=== PATIENT | male | born 1970 | race Two or more races ===

== ENCOUNTER 2020-08-03 10:14 | Outpatient (CLI) | payer OTHER | END 2020-08-03 23:59 | disposition home or self-care (01) | LOC: LAB 10:14 | PROVIDERS: ATTEND Specialist | DX: Z01.812 Encounter for preprocedural laboratory examination (principal); Z20.828 Contact with and (suspected) exposure to other viral communicable diseases | CPT/HCPCS: 87426; C9803; U0003 ==

== ENCOUNTER 2020-08-10 08:41 | Day surgery (SDC) | payer OTHER ==
[2020-08-10] VITALS (7 sets, daily range): BP systolic 114–163; BP diastolic 72–80
[2020-08-10] MEDS ORDERED: LIDOCAINE 1% INJ 50 ML MDV IJ ONE (10:25)
[2020-08-10] MEDS ORDERED: EPINEPHRINE (1:1000) 1 MG/ML AMPUL ONE (10:26)
[2020-08-10] MEDS ORDERED: methylPREDNISolone ACETATE 80 MG/ML VIAL ONE (10:26)
--- NOTE | 2020-08-10 10:35 | NUR ---
RN NOTES PT ADMITTED TO UNIT AMBULATORY AT 0900. A/O X4. ABLE TO MAKE NEEDS, DENIES PAIN OR ANY DISCOMFORTS VOICED. ORIENTED TO STAFF AND ROOM. PT FOR LEFT SHOULDER ARTHROSCOPY , DEBRIDEMENT ACROMIOPLASTY, POSSIBLE ROTATOR CUFF REPAIR BY DR PHILIPPE, ALL CONSENTS SIGNED BY PATIENT. V/S TAKEN AND RECORDED. ON ROOM AIR, TOLERATING WELL WITH NO SOB NOTED. IV ACCESS INSERTED BY O.R. NURSE TOMMIE TO RAC G#[id number]. PRE-OP CHECKLIST DONE. WILL CONTINUE TO MONITOR PT.
[2020-08-10] MEDS ORDERED: HYDROMORPHONE INJ 2 MG/ML DISP.SYRIN ONE (11:33)
[2020-08-10] MEDS ORDERED: ROCURONIUM BROMIDE 50 MG/5 ML ONE (11:34)
[2020-08-10] MEDS ORDERED: MIDAZOLAM HCL 2 MG/2ML VIAL ONE (11:34)
[2020-08-10] MEDS ORDERED: BUPIVACAINE 0.5 % PF 150 MG/30 ML VIAL ONE (11:58)
--- NOTE | 2020-08-10 14:34 | NUR ---
RN NOTES PT RETURNED TO UNIT S/P LEFT SHOULDER ARTHROSCOPY ACROMIOPLASTY DEBRIDEMENT BY DR PHILIPPE ACCOMPANIED BY O.R. NURSES TOMMIE AND REX. PT AWAKE, A/O X4. ABLE TO MAKE NEEDS KNOWN, NO C/O PAIN VOICED AT THIS TIME. V/S CHECKED AND RECORDED. PT NOTED ON SUPPLEMENTAL 02 @2LPM VIA N/C AT THIS TIME WITH SPO2 OF 95%, NO C/O SOB VOICED. PT WITH DRESSING C/D/I ON LEFT SHOULDER AND SLING ON LEFT ARM IN PLACE. ALL SAFETY MEASURES KEPT IN PLACE. CALL LIGHT PLACED W/IN EASY REACH OF PT. WILL CONTINUE TO MONITOR. .
[2020-08-10] MEDS ORDERED: HYDROCODONE/APAP 5/325MG TABLET PO PRN ×2 (15:00)
--- NOTE | 2020-08-10 18:10 | NUR ---
RN DISCHARGED NOTES PT DISCHARGED HOME IN STABLE CONDITION. A/O X4. ABLE TO MAKE NEEDS KNOWN. V/S STABLE. ON ROOM AIR, TOLERATING WELL WITH NO ACUTE DISTRESS NOTED. IV ACCESS REMOVED WITH NO ACTIVE BLEEDING NOTED, DRY DRESSING APPLIED TO SITE. NAME ARMBAND REMOVED. DRESSING ON LEFT SHOULDER C/D/I. SLING ON LEFT ARM KEPT IN PLACE. HEALTH TEACHINGS GIVEN AND PT VERBALIZED UNDERSTANDING. PT LEFT UNIT AMBULATORY AT 1800 ACCOMPANIED BY DELIA CHAVEZ TO [facility]. PT'S DEO IN [facility] AND WILL TAKE PT'S HOME. CHARGE NURSE [place] AWARE OF DISCHARGE.
== END 2020-08-10 16:00 | disposition home or self-care (01) ==
LOC: DS 08:41 → MED 08:43 → UNDOADMIN 08:43 → DS 16:00 → UNDODISIN 19:00
PROVIDERS: ATTEND Specialist
DX: M75.42 Impingement syndrome of left shoulder (principal); M19.012 Primary osteoarthritis, left shoulder; M65.9 Synovitis and tenosynovitis, unspecified; M75.110 Incomplete rotator cuff tear or rupture of unspecified shoulder, not specified as traumatic; M65.812 Other synovitis and tenosynovitis, left shoulder
CPT/HCPCS: 29824; 87081; A4217; A4565; J0171; J0690; J1040; J1100; J1885; J2250; J2405; J2704; J3490 ×3; G0378; J1170